=== PATIENT | male | born 1985 | race Hispanic/Latino ===

== ENCOUNTER 2017-05-03 12:47 | Emergency (ER) | payer OTHER ==
[2017-05-03 13:00] VITALS: RESP 16
[2017-05-03] MEDS ORDERED: Sodium Chloride 0.9% 1,000 ML IV STA (13:29)
[2017-05-03 13:47] LABS: BASO % 0.2 % (0.0-2.0); EOS % 0.1 % (0.0-4.0); HEMOGLOBIN 16.4 g/dL (12.0-18.0); LYMPH # 0.5 K/uL (1.0-4.3); LYMPH % 4.5 % (20.0-40.0); MEAN CELL VOLUME 86.6 fl (80.0-94.0); MEAN CORPUSCULAR HEMOGLOBIN 30.1 pg (27.0-31.0); MEAN CORPUSCULAR HGB CONC 34.7 g/dL (33.0-37.0); MEAN PLATELET VOLUME 7.7 fl (7.2-11.7); MONO # 0.7 K/uL (0.0-0.8); MONO % 7.4 % (0.0-10.0); NEUT # 8.7 K/uL (1.8-7.0); NEUT % 87.8 % (50.0-75.0); PLATELET COUNT 171 K/uL (130-400); RBC 5.44 Mil/uL (4.40-5.90); RED CELL DISTRIBUTION WIDTH 13.3 % (11.5-14.5)
[2017-05-03] MEDS ORDERED: Alum-Mag Hydrox-Simethicone Susp (30 mL) PO STA (13:55)
--- NOTE | 2017-05-03 14:00 | ED PDOC ---
HPI: General Adult Time Seen by Provider: 05/03/17 12:56 Chief Complaint (Nursing): GI Problem Chief Complaint (Provider): Vomiting, bodyaches, fever History Per: Patient History/Exam Limitations: no limitations Onset/Duration Of Symptoms: Days Current Symptoms Are (Timing): Better Additional Complaint(s): Pt reports vomiting 4-6 times yesterday. PT reports seeing blood in the vomiting. Pt states he never had abdominal pain and still does not. PT denies any history of GI issues. Pt states today he has no nausea. Pt states now he feels feverish with body aches. temp 100.0 at home. No medications taken for symptoms. Of note, pt walked to ER and picked up dry cleaning on the way. Past Medical History Reviewed: Historical Data, Nursing Documentation, Vital Signs Vital Signs: Last Vital Signs Temp 99.4 F 05/03/17 16:25 Pulse 88 05/03/17 16:25 Resp 16 05/03/17 16:25 BP 124/67 05/03/17 16:25 Pulse Ox 96 05/03/17 16:25 - Medical History PMH: Kidney Stones - Surgical History Surgical History: No Surg Hx - Family History Family History: States: No Known Family Hx - Living Arrangements Living Arrangements: With Family - Social History Current smoker - smoking cessation education provided: No Alcohol: Occasional Drugs: Denies - Allergies Allergies/Adverse Reactions: Allergies Allergy/AdvReac Type Severity Reaction Status Date / Time No Known Allergies Allergy Verified 05/03/17 12:58 Review of Systems ROS Statement: Except As Marked, All Systems Reviewed And Found Negative Constitutional: Positive for: Fever, Malaise. Negative for: Chills Gastrointestinal: Positive for: Nausea, Vomiting, Hematemesis. Negative for: Abdominal Pain, Rectal Pain Physical Exam - Reviewed Nursing Documentation Reviewed: Yes Vital Signs Reviewed: Yes - Physical Exam Appears: Positive for: Well, Non-toxic, No Acute Distress Head Exam: Positive for: ATRAUMATIC, NORMAL INSPECTION, NORMOCEPHALIC Skin: Positive for: Normal Color, Warm, DRY Eye Exam: Positive for: Normal appearance ENT: Positive for: Normal ENT Inspection Neck: Positive for: Normal, Painless ROM Cardiovascular/Chest: Positive for: Regular Rate, Rhythm Respiratory: Positive for: CNT, Normal Breath Sounds Gastrointestinal/Abdominal: Positive for: Normal Exam, Bowel Sounds, Soft. Negative for: Tenderness, Guarding, Rebound Back: Positive for: Normal Inspection Extremity: Positive for: Normal ROM Neurologic/Psych: Positive for: Alert, Oriented - Laboratory Results Result Diagrams: 05/03/17 13:40 05/03/17 13:40 - ECG O2 Sat by Pulse Oximetry: 97 Medical Decision Making Medical Decision Making: Labs normal. Repeat vitals WNL. Pt continues to deny pain. Rectal deferred. PT denies chest pain and SOB. Disposition - Clinical Impression Clinical Impression: Viral illness - Patient ED Disposition Is Patient to be Admitted: No Counseled Patient/Family Regarding: Diagnosis, Need For Followup - Disposition Disposition: Routine/Home Disposition Time: 17:25 Condition: GOOD Instructions: Viral Syndrome (ED) Forms: [employer] (French)
[2017-05-03 14:02] LABS: ALB/GLOB RATIO 1.6 (1.0-2.1); ALBUMIN 4.7 g/dL (3.5-5.0); ALT/SGPT 48 U/L (21-72); AST/SGOT 23 U/L (17-59); BLOOD UREA NITROGEN 15 mg/dl (9-20); CALCIUM 9.1 mg/dL (8.4-10.2); GFR AFRICAN-AMERICAN > 60; GFR NON-AFRICAN AMERICAN > 60
[2017-05-03] MEDS ORDERED: Magnesium Hydroxide Susp 30 ml UD ONE (14:43)
[2017-05-03] MEDS ORDERED: Alum-Mag Hydrox-Simethicone Susp (30 mL) ONE (14:45)
[2017-05-03 15:04] LABS: BANDS 1 % (0-2); LYMPHOCYTE 5 % (20-50); MONOCYTE 6 % (0-10); NEUTROPHIL 88 % (42-75); PLATELET ESTIMATE NORMAL (NORMAL); TOTAL CELLS COUNTED 100
--- NOTE | 2017-05-03 15:14 | RAD ---
HISTORY: epigastric, chest pain, burning COMPARISON: None available. TECHNIQUE: Chest PA and lateral FINDINGS: LUNGS: No focal consolidation. Please note that chest x-ray has limited sensitivity for the detection of pulmonary masses. PLEURA: No significant pleural effusion identified. No definite pneumothorax . CARDIOVASCULAR: The cardiomediastinal silhouette appears within normal limits of size. OSSEOUS STRUCTURES: No acute osseous abnormality identified. VISUALIZED UPPER ABDOMEN: Unremarkable. OTHER FINDINGS: None. IMPRESSION: No focal consolidation, significant pleural effusion, or definite pneumothorax identified.
[2017-05-03 16:26] VITALS: BP 124/67; PULSE 88; TEMP 99.4
[2017-05-03 17:26] VITALS: O2SAT 97
== END 2017-05-03 17:57 | disposition home or self-care (01) ==
LOC: H.ER 12:47
DX: B34.9 Viral infection, unspecified (principal)
CPT/HCPCS: 71046; 80053; 83690; 85025; 87804; 96374; 99285; J1885; J7040